=== PATIENT | female | born 1995 | race Caucasian/White ===

== ENCOUNTER 2017-01-29 10:42 | Emergency (ER) | payer BC, OTHER ==
[2017-01-29] MEDS ORDERED: Sodium Chloride 0.9% 10 ML Syringe FLUSH PRN (10:49)
[2017-01-29 10:59] VITALS: BP 121/68
[2017-01-29] MEDS ORDERED: Ketorolac 10 MG Tab PO ONE (11:31)
[2017-01-29] MEDS ORDERED: predniSONE 20 MG Tab PO ONE (11:31)
--- NOTE | 2017-01-29 11:58 | EDM.PDOC ---
ED HPI GENERAL MEDICAL PROBLEM - General Chief Complaint: Upper Extremity Injury/Pain Stated Complaint: left shoulder injury Time Seen by Provider: 01/29/17 11:12 Source of Information: Reports: Patient History Limitations: Reports: No Limitations - History of Present Illness INITIAL COMMENTS - FREE TEXT/NARRATIVE: Patient comes in with shoulder pain that started initially yesterday, while she was at work at [employer]. 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 Popping sensation noted at time of injury. Was able to keep working throughout the day. Reports that area was sore, and she continued to note intermittent popping feeling when using shoulder. No numbness/tingling/weakness reported. Overall, pain was tolerable and mild overall. Today she had sudden worsening pain when she tried to mushroom picker another object at work and [employer] had her come in for evaluation. Pain rated as 6/10 Presented originally to clinic, told to go to ER. No prior history of similar pain per patient. She has history of migraines. 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 FILLER: Reports: Other (see below) Other 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 FILLER: none lef shoulder Pain Score (Numeric/FACES): 6 - Related Data Allergies Allergy/AdvReac Type Severity Reaction Status Date / Time Sulfa (Sulfonamide Allergy Hives Verified 06/05/15 18:05 Antibiotics) Home Meds: Home Meds Ondansetron [Zofran ODT] 4 mg PO Q6H PRN #2 tab.dis 06/05/15 [Rx] Escitalopram [Lexapro] 10 mg PO DAILY 01/29/17 [History] Ketorolac [Toradol] 10 mg PO Q6H PRN #10 tablet 01/29/17 [Rx] Non-Formulary Medication [NF Drug] 1 ea .XX ASDIRECTED 01/29/17 [History] Propranolol [Inderal LA] 120 mg PO BID 01/29/17 [History] Past Medical History HEENT History: Reports: Impaired Vision Other Gastrointestinal History: pancreatitis -mar 2015 Musculoskeletal History: Reports: Fracture Neurological History: Reports: Head Trauma, Migraines Psychiatric History: Reports: Anxiety, Depression - Past Surgical History HEENT Surgical History: Reports: Adenoidectomy, Oral Surgery, Tonsillectomy Social & Family History - Tobacco Use Smoking Status *Q: Current Every Day Smoker Years of Tobacco use: 7 Packs/Tins Daily: 1 Used Tobacco, but Quit: No Tobacco Use Comment: Not interested in quitting at this time Second Hand Smoke Exposure: Yes - Caffeine Use Caffeine Use: Reports: None - Alcohol Use Days Per Week of Alcohol Use: 0 - Recreational Drug Use Recreational Drug Use: No - Living Situation & Occupation Living situation: Reports: Single, with Family Occupation: Employed Review of Systems - Review of Systems Review Of Systems: ROS reveals no pertinent complaints other than HPI. ED EXAM, GENERAL - Physical Exam Exam: See Below Exam Limited By: No Limitations General Appearance: Alert, WD/WN, No Apparent Distress, Other (Holding left arm against her chest using right hand, elbows bent at 90 degrees. ) Eye Exam: Bilateral Eye: EOMI, PERRL Head: Atraumatic, Normocephalic Neck: Supple, Full Range of Motion Respiratory/Chest: No Respiratory Distress Peripheral Pulses: 2+: Radial (L), Radial (R) Extremities: Normal Capillary Refill, Other (unable to assess ROM of left shoulder due to patient guarding joint. No noted swelling of shoulder, no sign dislocation/deformity. Vascularly intact. Tender with palpation superiorly over shoulder, along entire Trap muscle posteriorly, and in left pectoral muscle. Left arm itself did not show obvious tenderness. ) Neurological: Alert, Oriented, Normal Cognition, Normal Gait Psychiatric: Flat Affect (somewhat flat affect) Skin Exam: Warm, Dry, Intact, Normal Color Course - Vital Signs Last Recorded V/S: Last Vital Signs Temp 37.4 C 01/29/17 10:58 Pulse 61 01/29/17 10:58 Resp 20 01/29/17 10:58 BP 121/68 01/29/17 10:58 Pulse Ox 99 01/29/17 10:58 - Orders/Labs/Meds Orders: Active Orders 24 hr Category Date Time Status Shoulder Comp Lt [CR] Stat Exams 01/29/17 10:47 Taken Sodium Chloride 0.9% [Saline Flush] Med 01/29/17 10:49 Active 10 ml FLUSH ASDIRECTED PRN Saline Lock Insert [OM.PC] Routine Oth 01/29/17 10:49 Ordered Medication Orders Sodium Chloride (Saline Flush) 10 ml FLUSH ASDIRECTED PRN PRN Reason: Keep Vein Open Meds: Medications Generic Name Dose Route Start Last Admin Trade Name Freq PRN Reason Stop Dose Admin Sodium Chloride 10 ml 01/29/17 10:49 Saline Flush FLUSH ASDIRECTED PRN Keep Vein Open Discontinued Medications Generic Name Dose Route Start Last Admin Trade Name Kody PRN Reason Stop Dose Admin Ketorolac Tromethamine 10 mg 01/29/17 11:31 01/29/17 11:39 Toradol PO 01/29/17 11:32 10 mg ONETIME ONE Administration Prednisone 40 mg 01/29/17 11:31 01/29/17 11:41 Prednisone PO 01/29/17 11:32 40 mg ONETIME ONE Administration - Radiology Interpretation Free Text/Narrative:: No sign of dislocation/fracture noted when reviewing left shoulder films. Pending Radiology review. - Re-Assessments/Exams Free Text/Narrative Re-Assessment/Exam: 01/29/17 12:15 Patient refused IM medications. Was willing to take oral medication and received single dose of Prednisone and Toradol. Plan at this time is to provide patient sling for comfort and have her follow up tomorrow at Ortho walk-in clinic in [place] to have left shoulder re-evaluated as well as further work limitations decided. She did not show preference for choosing either [facility] or [facility] at this time. Rx for 10 Toradol tabs was given. No work today/tomorrow while waiting for Ortho evaluation. It was noted that patient has upcoming appointment with specialist in regards to her migraine headaches. It was suggested that she consider going on an elimination diet to try to identify food triggers, including discussion of most common dietary triggers for migraines. Patient refused, saying that she would not be willing to give up the listed foods. Departure - Departure Time of Disposition: 11:54 Disposition: Home, Self-Care 01 Condition: Good Clinical Impression: Injury of left shoulder Qualifiers: Encounter type: initial encounter Qualified Code(s): S49.92XA - Unspecified injury of left shoulder and upper arm, initial encounter - Discharge Information Prescriptions: Ketorolac [Toradol] 10 mg PO Q6H PRN #10 tablet PRN Reason: Pain Instructions: Ketorolac tablets, Prednisone tablets Referrals: Gregg Escobar [facility] [employer] [facility] [Primary Care Provider] - Forms: ED Department Discharge Additional Instructions: Wear sling for comfort. No other NSAIDS while using Toradol. Follow up tomorrow at Ortho walk-in clinic in [place], either [facility] or [facility]. You cannot schedule an appointment for this. They take walk-ins only, and it is better to show up in the morning as they may fill up. - My Orders Last 24 Hours: My Active Orders 01/29/17 10:47 Shoulder Comp Lt [CR] Stat 01/29/17 10:49 Sodium Chloride 0.9% [Saline Flush] 10 ml FLUSH ASDIRECTED PRN Saline Lock Insert [OM.PC] Routine - Assessment/Plan Last 24 Hours: My Active Orders 01/29/17 10:47 Shoulder Comp Lt [CR] Stat 01/29/17 10:49 Sodium Chloride 0.9% [Saline Flush] 10 ml FLUSH ASDIRECTED PRN Saline Lock Insert [OM.PC] Routine
== END 2017-01-29 12:09 | disposition home or self-care (01) ==
LOC: LL.ED 10:42
DX: S49.92XA Unspecified injury of left shoulder and upper arm, initial encounter (principal); F41.9 Anxiety disorder, unspecified; F32.9 Major depressive disorder, single episode, unspecified; F17.210 Nicotine dependence, cigarettes, uncomplicated; Z88.2 Allergy status to sulfonamides; Z79.899 Other long term (current) drug therapy; X50.9XXA Other and unspecified overexertion or strenuous movements or postures, initial encounter
CPT/HCPCS: 73030; 99283; A9270

== ENCOUNTER 2017-04-16 18:15 | Emergency (ER) | payer BC, OTHER ==
[2017-04-16 18:20] VITALS: BP 120/72
[2017-04-16] MEDS ORDERED: Ketorolac 30 MG/ML SDV IVPUSH ONE (18:48)
[2017-04-16] MEDS ORDERED: Metoclopramide 10 MG/2 ML SDV IVPUSH ONE (18:48)
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
[2017-04-16] MEDS ORDERED: Sodium Chloride 0.9% 10 ML Syringe FLUSH PRN (18:49)
== END 2017-04-16 19:30 | disposition home or self-care (01) ==
LOC: LL.ED 18:15
DX: G43.909 Migraine, unspecified, not intractable, without status migrainosus (principal); F41.8 Other specified anxiety disorders; J02.9 Acute pharyngitis, unspecified; F17.210 Nicotine dependence, cigarettes, uncomplicated; Z88.2 Allergy status to sulfonamides; Z79.899 Other long term (current) drug therapy; Z71.6 Tobacco abuse counseling
CPT/HCPCS: 87081; 87430; 87804; 96374; 96375; 99284; J1885; J2765; J7050

== ENCOUNTER 2018-12-26 14:41 | Emergency (ER) | payer BC ==
[2018-12-26 14:58] VITALS: BP 108/75
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
== END 2018-12-26 15:50 | disposition home or self-care (01) ==
LOC: LL.ED 14:41
DX: T63.461A Toxic effect of venom of wasps, accidental (unintentional), initial encounter (principal); F41.9 Anxiety disorder, unspecified; F32.9 Major depressive disorder, single episode, unspecified; Z88.2 Allergy status to sulfonamides; Z79.899 Other long term (current) drug therapy
CPT/HCPCS: 99281

== ENCOUNTER → 2019-03-04 | Outpatient (CLI) | payer BC ==
[2019-03-04 13:11] LABS: CHLORIDE,CL 103 mmol/L (98-107); SODIUM,NA 139 mmol/L (136-145)
== END ==
LOC: LL.CLIN 11:00
PROVIDERS: ATTEND Nurse Practitioner
DX: G47.00 Insomnia, unspecified (principal)
CPT/HCPCS: 36415; 80048; 82306; 82607; 82728; 83540; 83550; 83735; 84207; 84443; 84590

== ENCOUNTER 2019-06-05 09:42 | Emergency (ER) | payer OTHER ==
[2019-06-05] MEDS ORDERED: Sodium Chloride 0.9% 10 ML Syringe FLUSH PRN (09:55)
[2019-06-05] MEDS ORDERED: Ondansetron 4 MG/2 ML SDV ONE (10:00)
[2019-06-05] MEDS ORDERED: Morphine 2 MG/ML Syringe ONE (10:00)
[2019-06-05] MEDS ORDERED: Magnesium Sulfate/D5W 1 GM/100 ML Premix Bag ONE (10:00)
[2019-06-05] MEDS ORDERED: Diazepam 5 MG Tab ONE (10:00)
[2019-06-05] MEDS ORDERED: Ketorolac 30 MG/ML SDV ONE (10:00)
[2019-06-05] MEDS ORDERED: Ondansetron 4 MG/2 ML SDV IVPUSH ONE (10:10)
[2019-06-05] MEDS ORDERED: Morphine 2 MG/ML Syringe IVPUSH ONE ×3 (10:10→13:30)
[2019-06-05] MEDS ORDERED: Sodium Chloride 0.9% 1,000 ML IV ONE ×4 (10:10→12:45)
[2019-06-05 10:18] LABS: CHLORIDE,CL 105 mmol/L (98-107); SODIUM,NA 142 mmol/L (136-145)
[2019-06-05] MEDS ORDERED: Iopamidol 612 MG/ML 100 ML Bottle IVPUSH ONE (10:33)
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
[2019-06-05] MEDS ORDERED: Ketorolac 30 MG/ML SDV IVPUSH ONE (11:49)
[2019-06-05] MEDS ORDERED: Diazepam 5 MG Tab PO ONE (12:22)
[2019-06-05 15:21] LABS: BARBITURATE SCREEN,URINE NEGATIVE (NEGATIVE); BENZODIAZEPINES SCREEN,URINE NEGATIVE (NEGATIVE); EDDP,URINE SCREEN NEGATIVE (NEGATIVE); TCA SCREEN,URINE NEGATIVE (NEGATIVE); THC SCREEN,URINE 50 NG/ML NEGATIVE (NEGATIVE)
== END 2019-06-05 14:15 | disposition home or self-care (01) ==
LOC: LL.ED 09:42
DX: S06.0X1A Concussion with loss of consciousness of 30 minutes or less, initial encounter (principal); T07.XXXA Unspecified multiple injuries, initial encounter; F41.9 Anxiety disorder, unspecified; F32.9 Major depressive disorder, single episode, unspecified; F17.210 Nicotine dependence, cigarettes, uncomplicated; Z79.899 Other long term (current) drug therapy; Z88.2 Allergy status to sulfonamides; V48.5XXA Car driver injured in noncollision transport accident in traffic accident, initial encounter; Y92.410 Unspecified street and highway as the place of occurrence of the external cause
CPT/HCPCS: 36415; 70450; 71260; 72125; 74177; 80053; 80305-QW; 80307; 81001; 83605; 83735; 84703; 85025; 96361; 96365; 96375; 99285-25; A9270-GY; J1885; J2270; J2405; J3475; J7030; Q9967

== ENCOUNTER 2019-10-11 18:27 | Emergency (ER) | payer BC ==
[2019-10-11] MEDS ORDERED: Sodium Chloride 0.9% 10 ML Syringe FLUSH PRN (18:57)
[2019-10-11] MEDS ORDERED: Ondansetron 4 MG/2 ML SDV IVPUSH ONE (19:18)
[2019-10-11] MEDS ORDERED: Sodium Chloride 0.9% 1,000 ML IV ONE (19:18)
[2019-10-11 19:28] LABS: CHLORIDE,CL 107 mmol/L (98-107); SODIUM,NA 139 mmol/L (136-145)
[2019-10-11] MEDS ORDERED: Ketorolac 30 MG/ML SDV IVPUSH ONE (19:58)
[2019-10-11 20:24] VITALS: BP 128/80; PULSE 88
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
== END 2019-10-11 21:05 | disposition home or self-care (01) ==
LOC: LL.ED 18:27
DX: R11.2 Nausea with vomiting, unspecified (principal); F41.9 Anxiety disorder, unspecified; F32.9 Major depressive disorder, single episode, unspecified; F17.210 Nicotine dependence, cigarettes, uncomplicated; Z88.0 Allergy status to penicillin; Z79.899 Other long term (current) drug therapy; Z88.2 Allergy status to sulfonamides; Z20.828 Contact with and (suspected) exposure to other viral communicable diseases
CPT/HCPCS: 36415; 74022; 80053; 83605; 83735; 85025; 96361; 96374; 96375; 99284-25; J1885; J2405; J7030; U0002

== ENCOUNTER 2019-10-16 10:55 | Emergency (ER) | payer BC ==
[2019-10-16] MEDS ORDERED: Sodium Chloride 0.9% 10 ML Syringe FLUSH PRN (11:04)
[2019-10-16] MEDS ORDERED: Promethazine 25 MG/ML SDV IM ONE (11:04)
[2019-10-16] MEDS ORDERED: Ketorolac 30 MG/ML SDV IVPUSH ONE (11:04)
[2019-10-16] MEDS ORDERED: diphenhydrAMINE 50 MG/ML SDV IVPUSH ONE (11:05)
[2019-10-16 11:17] VITALS: BP 103/56; PULSE 78
[2019-10-16] MEDS ORDERED: diphenhydrAMINE 50 MG/ML SDV IM ONE (11:28)
[2019-10-16] MEDS ORDERED: Ketorolac 30 MG/ML SDV IM ONE (11:29)
[2019-10-16] MEDS ORDERED: Sodium Chloride 0.9% 1,000 ML IV ONE (11:30)
[2019-10-16 11:58] LABS: CHLORIDE,CL 107 mmol/L (98-107); SODIUM,NA 140 mmol/L (136-145)
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
== END 2019-10-16 13:09 | disposition home or self-care (01) ==
LOC: LL.ED 10:55
DX: G43.909 Migraine, unspecified, not intractable, without status migrainosus (principal); F41.9 Anxiety disorder, unspecified; F32.9 Major depressive disorder, single episode, unspecified; F17.210 Nicotine dependence, cigarettes, uncomplicated; Z88.0 Allergy status to penicillin; Z88.2 Allergy status to sulfonamides; Z79.899 Other long term (current) drug therapy
CPT/HCPCS: 36415; 70450; 80053; 85025; 96372; 99284; J1200; J1885; J2550

== ENCOUNTER 2019-12-22 21:59 | Emergency (ER) | payer BC ==
[2019-12-22 22:02] VITALS: BP 109/58; PULSE 65
[2019-12-22] MEDS ORDERED: diphenhydrAMINE 50 MG/ML SDV IM ONE (22:18)
[2019-12-22] MEDS ORDERED: Promethazine 25 MG/ML SDV IM ONE (22:18)
[2019-12-22] MEDS ORDERED: Ketorolac 30 MG/ML SDV IM ONE (22:19)
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
== END 2019-12-22 22:30 | disposition home or self-care (01) ==
LOC: LL.ED 21:59
DX: G43.909 Migraine, unspecified, not intractable, without status migrainosus (principal); F41.9 Anxiety disorder, unspecified; F32.9 Major depressive disorder, single episode, unspecified; F17.210 Nicotine dependence, cigarettes, uncomplicated; Z88.0 Allergy status to penicillin; Z88.2 Allergy status to sulfonamides; Z79.899 Other long term (current) drug therapy
CPT/HCPCS: 96372; 99283; J1200; J1885; J2550

== ENCOUNTER 2020-01-12 21:43 | Emergency (ER) | payer BC ==
[2020-01-12 21:59] VITALS: BP 118/63; PULSE 74
[2020-01-12 22:35] LABS: CHLORIDE,CL 102 mmol/L (98-107); SODIUM,NA 136 mmol/L (136-145)
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
== END 2020-01-12 23:00 | disposition home or self-care (01) ==
LOC: LL.ED 21:43
DX: R19.7 Diarrhea, unspecified (principal); F32.9 Major depressive disorder, single episode, unspecified; F17.210 Nicotine dependence, cigarettes, uncomplicated; F41.9 Anxiety disorder, unspecified; Z88.0 Allergy status to penicillin; Z88.2 Allergy status to sulfonamides; Z79.899 Other long term (current) drug therapy
CPT/HCPCS: 36415; 80048; 85025; 99283; 99284

== ENCOUNTER 2020-06-24 15:50 | Emergency (ER) | payer BC ==
[2020-06-24 15:58] VITALS: PULSE 84
[2020-06-24 16:28] VITALS: BP 115/73
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
== END 2020-06-24 16:35 | disposition home or self-care (01) ==
LOC: LL.ED 15:50
DX: S61.210A Laceration without foreign body of right index finger without damage to nail, initial encounter (principal); Z88.0 Allergy status to penicillin; Z88.2 Allergy status to sulfonamides; Z79.899 Other long term (current) drug therapy; W26.8XXA Contact with other sharp object(s), not elsewhere classified, initial encounter
CPT/HCPCS: 12001; 99282; 99282-25

== ENCOUNTER 2020-07-19 20:59 | Emergency (ER) | payer BC ==
[2020-07-19 21:07] VITALS: BP 119/81; PULSE 77
[2020-07-19] MEDS ORDERED: Ondansetron 4 MG/2 ML SDV IVPUSH ONE (21:15)
[2020-07-19] MEDS ORDERED: Pantoprazole 40 MG Vial IVPUSH ONE (21:15)
[2020-07-19] MEDS ORDERED: Lactated Ringers 1,000 ML IV ONE (21:15)
[2020-07-19] MEDS ORDERED: Famotidine 20 MG/2 ML SDV IVPUSH ONE (21:15)
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
[2020-07-19] MEDS: Sodium Chloride 0.9% 10 ML Syringe FLUSH PRN ×3 (21:36→22:23)
[2020-07-19 21:49] LABS: PTT,PARTIAL THROMBOPLSTIN TIME 24.2 SEC (24.5-32.8)
[2020-07-19 21:58] LABS: CHLORIDE,CL 102 mmol/L (98-107); SODIUM,NA 139 mmol/L (136-145)
[2020-07-19] MEDS ORDERED: Ketorolac 30 MG/ML SDV IVPUSH ONE (22:06)
[2020-07-19] MEDS ORDERED: Metoclopramide 10 MG/2 ML SDV IVPUSH ONE (22:07)
== END 2020-07-19 22:50 | disposition home or self-care (01) ==
LOC: LL.ED 20:59
DX: R10.84 Generalized abdominal pain (principal); G43.909 Migraine, unspecified, not intractable, without status migrainosus; F41.8 Other specified anxiety disorders; R63.0 Anorexia; E66.9 Obesity, unspecified; Z68.34 Body mass index [BMI] 34.0-34.9, adult; Z87.891 Personal history of nicotine dependence; Z88.0 Allergy status to penicillin; Z88.2 Allergy status to sulfonamides; Z79.899 Other long term (current) drug therapy; Z20.822 Contact with and (suspected) exposure to COVID-19
CPT/HCPCS: 36415; 74022; 80053; 82150; 83605; 83690; 83735; 84443; 84550; 84703; 85025; 85610; 85730; 87804; 96374; 96375; 99284; 99284-25; C9113; J1885; J2405; J2765; J3490; J7120; U0002

== ENCOUNTER 2021-02-27 15:33 | Emergency (ER) | payer BC ==
[2021-02-27] MEDS ORDERED: diphenhydrAMINE 50 MG/ML SDV IVPUSH ONE (15:51)
[2021-02-27] MEDS ORDERED: Ondansetron 4 MG/2 ML SDV IV ONE (15:51)
[2021-02-27] MEDS ORDERED: Lactated Ringers 1,000 ML IV ONE ×3 (15:51→19:13)
[2021-02-27] MEDS ORDERED: Ketorolac 30 MG/ML SDV IVPUSH ONE (15:51)
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
[2021-02-27] MEDS: Sodium Chloride 0.9% 10 ML Syringe FLUSH PRN ×4 (16:20→20:13)
[2021-02-27 16:30] LABS: ANION GAP 10.8 meq/L (7-15); CHLORIDE,CL 105 mmol/L (98-107); SODIUM,NA 140 mmol/L (136-145)
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
[2021-02-27 19:24] VITALS: BP 126/75
[2021-02-27] MEDS ORDERED: HYDROmorphone 1 MG/ML Syringe IVPUSH ONE (19:54)
[2021-02-27] MEDS ORDERED: Ondansetron 4 MG/2 ML SDV ONE (20:16)
[2021-02-27 20:29] VITALS: PULSE 88
== END 2021-02-27 20:50 | disposition home or self-care (01) ==
LOC: LL.ED 15:33
DX: R10.9 Unspecified abdominal pain (principal); E66.9 Obesity, unspecified; Z88.0 Allergy status to penicillin; Z88.2 Allergy status to sulfonamides
CPT/HCPCS: 36415; 80053; 81001; 81025; 83605; 85025; 86140; 87040; 96374; 96375; 99283; 99284; J1170; J1200; J1885; J2405; J7120

== ENCOUNTER 2021-10-30 07:50 | Emergency (ER) | payer SELFPAY ==
[2021-10-30] MEDS ORDERED: Ondansetron 4 MG Tab.DIS PO ONE (08:37)
[2021-10-30] MEDS ORDERED: Lidocaine 1% 5 ML VIAL INJECT ONE (08:38)
[2021-10-30] MEDS ORDERED: cefTRIAXone 1 GM Vial IM ONE (08:38)
[2021-10-30] MEDS ORDERED: Ketorolac 30 MG/ML SDV IM ONE (08:39)
[2021-10-30] MEDS ORDERED: Pseudoephedrine 30 MG Tab PO ONE (08:39)
[2021-10-30] MEDS ORDERED: traMADol 50 MG Tab PO ONE (08:41)
[2021-10-30 09:51] VITALS: BP 120/36; PULSE 123
== END 2021-10-30 09:40 | disposition home or self-care (01) ==
LOC: LL.ED 07:50
DX: H66.92 Otitis media, unspecified, left ear (principal); E66.9 Obesity, unspecified; Z68.30 Body mass index [BMI] 30.0-30.9, adult; Z88.0 Allergy status to penicillin; Z88.2 Allergy status to sulfonamides; Z79.899 Other long term (current) drug therapy
CPT/HCPCS: 96372; 99282; A9270-GY; J0696; J1885

== ENCOUNTER 2022-04-30 13:31 | Emergency (ER) | payer BC, MEDICAID ==
[2022-04-30 13:36] VITALS: BP 144/79; PULSE 100
[2022-04-30 14:46] LABS: ANION GAP 10.3 meq/L (7-15); CHLORIDE,CL 103 mmol/L (98-107); ESTIMATED GFR 121 mL/min (>=60); SODIUM,NA 138 mmol/L (136-145)
[2022-04-30] MEDS ORDERED: Prochlorperazine 10 MG/2 ML SDV IV ONE (15:32)
[2022-04-30] MEDS ORDERED: Ketorolac 15 MG/ML SDV IVPUSH ONE (15:32)
[2022-04-30] MEDS ORDERED: Sodium Chloride 0.9% 500 ML IV SCH (15:45)
== END 2022-04-30 16:25 | disposition home or self-care (01) ==
LOC: LL.ED 13:31
DX: G43.909 Migraine, unspecified, not intractable, without status migrainosus (principal); E66.9 Obesity, unspecified; Z68.32 Body mass index [BMI] 32.0-32.9, adult; Z88.0 Allergy status to penicillin; Z88.2 Allergy status to sulfonamides; Z79.899 Other long term (current) drug therapy
CPT/HCPCS: 36415; 80053; 85025; 96361; 96374; 96375; 99283-25; J0780; J1885; J7040

== ENCOUNTER 2023-02-21 07:29 | Emergency (ER) | payer BC ==
[2023-02-21 07:35] VITALS: BP 139/93; PULSE 90
[2023-02-21] MEDS ORDERED: Sodium Chloride 0.9% 10 ML Syringe FLUSH PRN (07:45)
[2023-02-21 08:00] LABS: BASOPHILS ABSOLUTE AUTO 0.07 K/uL (0.00-0.20); EOSINOPHILS ABSOLUTE AUTO 0.07 K/uL (0.00-0.50); HEMATOCRIT 41.6 % (34.0-46.0); HEMOGLOBIN 13.9 g/dL (11.7-15.5); LYMPHOCYTES ABSOLUTE AUTO 2.29 K/uL (0.50-3.50); LYMPHOCYTES PERCENT AUTO 33.4 % (10.0-50.0); MEAN CORPUSCULAR HEMOGLOBIN 29.6 pg (28.2-33.3); MEAN CORPUSCULAR HGB CONC 33.4 g/dL (31.7-36.0); MEAN CORPUSCULAR VOLUME 88.7 fL (84.0-98.0); MONOCYTES ABSOLUTE AUTO 0.48 K/uL (0.00-1.00); NEUTROPHILS ABSOLUTE AUTO 3.95 K/uL (1.40-7.00); NEUTROPHILS PERCENT AUTO 57.6 % (45.0-80.0); PLATELET COUNT,PLT 347 K/uL (150-350); RED BLOOD CELL COUNT 4.69 M/uL (3.77-5.09); WHITE BLOOD CELL COUNT,WBC 6.9 K/uL (4.0-10.2)
[2023-02-21] MEDS ORDERED: Ondansetron 4 MG/2 ML SDV ONE (08:05)
[2023-02-21] MEDS ORDERED: Ondansetron 4 MG/2 ML SDV IVPUSH ONE (08:06)
[2023-02-21] MEDS ORDERED: Sodium Chloride 0.9% 1,000 ML IV ONE (08:11)
[2023-02-21 08:21] LABS: ALBUMIN 3.6 g/dL (3.4-5.0); ANION GAP 10.9 meq/L (7-15); BILIRUBIN TOTAL 0.3 mg/dL (0.2-1.0); CALCIUM 8.9 mg/dL (8.5-10.1); CARBON DIOXIDE,CO2 24.1 mmol/L (21.0-32.0); CREATININE 0.67 mg/dL (0.51-1.17); EST CRCL DRUG DOSING (CG) 101.52 mL/min; POTASSIUM,K 4.4 mmol/L (3.5-5.1); PROTEIN TOTAL,TP 6.9 g/dL (6.4-8.2)
[2023-02-21 08:26] LABS: INR 0.9 (0.9-1.1); PROTHROMBIN TIME 9.3 SEC (9.0-11.1)
[2023-02-21 08:29] LABS: CORONAVIRUS COVID-19 NAA NEGATIVE (NEGATIVE); INFLUENZA A NAA NEGATIVE (NEGATIVE); INFLUENZA B NAA NEGATIVE (NEGATIVE); RESPIRATORY SYNCYTIAL VIR NAA NEGATIVE (NEGATIVE)
[2023-02-21] MEDS ORDERED: Aluminum Hydroxide/Magnesium Hydroxide/Simethicone Susp 30 ML Cup PO ONE (08:58)
[2023-02-21] MEDS ORDERED: Lidocaine 2% Viscous Solution 15 ML UD PO ONE (08:58)
[2023-02-21] MEDS ORDERED: Sucralfate 1 GM Tab PO ONE (10:24)
== END 2023-02-21 11:40 | disposition home or self-care (01) ==
LOC: LL.ED 07:29
DX: K29.00 Acute gastritis without bleeding (principal); E66.9 Obesity, unspecified; Z68.37 Body mass index [BMI] 37.0-37.9, adult; Z88.0 Allergy status to penicillin; Z88.2 Allergy status to sulfonamides; Z88.8 Allergy status to other drugs, medicaments and biological substances; Z20.822 Contact with and (suspected) exposure to COVID-19
CPT/HCPCS: 0241U; 36415; 80053; 83690; 85025; 85610; 96361; 96374; 99284-25; A9270-GY; J2405; J7030

== ENCOUNTER 2023-03-31 06:24 | Emergency (ER) | payer BC ==
[2023-03-31] MEDS ORDERED: Pantoprazole 40 MG in Sodium Chloride 0.9% 100 ML IV ONE (06:43)
[2023-03-31] MEDS ORDERED: Ondansetron 4 MG/2 ML SDV IVPUSH ONE (06:44)
[2023-03-31] MEDS ORDERED: Pantoprazole 40 MG Vial IVPUSH ONE (07:03)
[2023-03-31 07:08] LABS: BASOPHILS ABSOLUTE AUTO 0.05 K/uL (0.00-0.20); BASOPHILS PERCENT AUTO 0.6 % (0.0-2.0); EOSINOPHILS ABSOLUTE AUTO 0.13 K/uL (0.00-0.50); EOSINOPHILS PERCENT AUTO 1.5 % (0.0-5.0); HEMATOCRIT 41.1 % (34.0-46.0); HEMOGLOBIN 13.8 g/dL (11.7-15.5); LYMPHOCYTES ABSOLUTE AUTO 3.42 K/uL (0.50-3.50); LYMPHOCYTES PERCENT AUTO 39.4 % (10.0-50.0); MEAN CORPUSCULAR HEMOGLOBIN 29.7 pg (28.2-33.3); MEAN CORPUSCULAR HGB CONC 33.6 g/dL (31.7-36.0); MEAN CORPUSCULAR VOLUME 88.4 fL (84.0-98.0); MONOCYTES ABSOLUTE AUTO 0.66 K/uL (0.00-1.00); MONOCYTES PERCENT AUTO 7.6 % (2.0-14.0); NEUTROPHILS ABSOLUTE AUTO 4.42 K/uL (1.40-7.00); NEUTROPHILS PERCENT AUTO 50.9 % (45.0-80.0); PLATELET COUNT,PLT 321 K/uL (150-350); RED BLOOD CELL COUNT 4.65 M/uL (3.77-5.09); RED CELL DISTRIBUTION WIDTH 12.7 % (11.2-14.1); WHITE BLOOD CELL COUNT,WBC 8.7 K/uL (4.0-10.2)
[2023-03-31] MEDS: Sodium Chloride 0.9% 10 ML Syringe FLUSH PRN ×2 (07:16→09:14)
[2023-03-31] MEDS ORDERED: Sodium Chloride 0.9% 1,000 ML IV ONE (07:34)
[2023-03-31 07:35] LABS: ALANINE AMINOTRANSFERASE,ALT 34 U/L (12-78); ALBUMIN 3.5 g/dL (3.4-5.0); ALKALINE PHOSPHATASE 50 IU/L (46-116); ANION GAP 11.6 meq/L (7-15); ASPARTATE AMNIOTRANSFERASE,AST 14 U/L (15-37); BILIRUBIN TOTAL 0.5 mg/dL (0.2-1.0); BLOOD UREA NITROGEN,BUN 11 mg/dL (7-18); CALCIUM 8.9 mg/dL (8.5-10.1); CARBON DIOXIDE,CO2 25.4 mmol/L (21.0-32.0); CHLORIDE,CL 104 mmol/L (98-107); CREATININE 0.77 mg/dL (0.51-1.17); ESTIMATED GFR 109 mL/min (>=60); GLUCOSE RANDOM 99 mg/dL (70-99); POTASSIUM,K 3.9 mmol/L (3.5-5.1); PROTEIN TOTAL,TP 6.7 g/dL (6.4-8.2); SODIUM,NA 141 mmol/L (136-145)
[2023-03-31] MEDS ORDERED: Promethazine 25 MG/ML SDV IM ONE (07:48)
[2023-03-31] MEDS ORDERED: diphenhydrAMINE 50 MG/ML SDV IVPUSH ONE (08:00)
[2023-03-31] MEDS ORDERED: Ketorolac 30 MG/ML SDV IVPUSH ONE (08:01)
[2023-03-31 09:20] VITALS: BP 121/85; PULSE 70
[2023-03-31 09:22] LABS: APPEARANCE,URINE CLEAR; BILIRUBIN,URINE NEGATIVE (NEGATIVE); COLOR,URINE YELLOW; GLUCOSE,URINE NEGATIVE (NEGATIVE); KETONES,URINE NEGATIVE (NEGATIVE); LEUKOCYTE ESTERASE,URINE NEGATIVE (NEGATIVE); NITRITE,URINE NEGATIVE (NEGATIVE); OCCULT BLOOD,URINE NEGATIVE (NEGATIVE); PROTEIN,URINE NEGATIVE (NEGATIVE); UROBILINOGEN,URINE 0.2 E.U./dL (0.2-1.0)
[2023-03-31 09:46] LABS: BACTERIA,URINE FEW /HPF (NONE TO FEW); RBC,URINE 0-5 /HPF; WBC,URINE 0-5 /HPF
== END 2023-03-31 09:25 | disposition home or self-care (01) ==
LOC: LL.ED 06:24
DX: R10.9 Unspecified abdominal pain (principal); G89.29 Other chronic pain; K92.0 Hematemesis; G43.909 Migraine, unspecified, not intractable, without status migrainosus; K92.1 Melena; F17.210 Nicotine dependence, cigarettes, uncomplicated; E66.9 Obesity, unspecified; Z88.0 Allergy status to penicillin; Z88.2 Allergy status to sulfonamides; Z88.8 Allergy status to other drugs, medicaments and biological substances; Z79.899 Other long term (current) drug therapy
CPT/HCPCS: 36415; 80053; 81001; 81025; 83605; 85025; 96361; 96372; 96374; 96375; 99284; 99284-25; C9113; J1200; J1885; J2405; J2550; J3490; J7030

== ENCOUNTER 2023-04-26 07:10 | Emergency (ER) | payer BC ==
[2023-04-26] MEDS ORDERED: Sodium Chloride 0.9% 10 ML Syringe FLUSH PRN (07:34)
[2023-04-26] MEDS ORDERED: Sodium Chloride 0.9% 1,000 ML IV ONE ×2 (07:35→08:42)
[2023-04-26 08:04] LABS: BASOPHILS ABSOLUTE AUTO 0.04 K/uL (0.00-0.20); BASOPHILS PERCENT AUTO 0.5 % (0.0-2.0); EOSINOPHILS ABSOLUTE AUTO 0.06 K/uL (0.00-0.50); EOSINOPHILS PERCENT AUTO 0.8 % (0.0-5.0); HEMATOCRIT 40.4 % (34.0-46.0); HEMOGLOBIN 13.4 g/dL (11.7-15.5); LYMPHOCYTES ABSOLUTE AUTO 2.88 K/uL (0.50-3.50); LYMPHOCYTES PERCENT AUTO 39.2 % (10.0-50.0); MEAN CORPUSCULAR HEMOGLOBIN 29.3 pg (28.2-33.3); MEAN CORPUSCULAR HGB CONC 33.2 g/dL (31.7-36.0); MEAN CORPUSCULAR VOLUME 88.2 fL (84.0-98.0); MONOCYTES ABSOLUTE AUTO 0.51 K/uL (0.00-1.00); MONOCYTES PERCENT AUTO 6.9 % (2.0-14.0); NEUTROPHILS ABSOLUTE AUTO 3.85 K/uL (1.40-7.00); NEUTROPHILS PERCENT AUTO 52.6 % (45.0-80.0); PLATELET COUNT,PLT 256 K/uL (150-350); RED BLOOD CELL COUNT 4.58 M/uL (3.77-5.09); RED CELL DISTRIBUTION WIDTH 12.8 % (11.2-14.1); WHITE BLOOD CELL COUNT,WBC 7.3 K/uL (4.0-10.2)
[2023-04-26 08:11] LABS: ALANINE AMINOTRANSFERASE,ALT 47 U/L (12-78); ALBUMIN 3.3 g/dL (3.4-5.0); ALKALINE PHOSPHATASE 67 IU/L (46-116); ANION GAP 10.7 meq/L (7-15); ASPARTATE AMNIOTRANSFERASE,AST 22 U/L (15-37); BILIRUBIN TOTAL 0.4 mg/dL (0.2-1.0); BLOOD UREA NITROGEN,BUN 11 mg/dL (7-18); CALCIUM 8.9 mg/dL (8.5-10.1); CARBON DIOXIDE,CO2 24.3 mmol/L (21.0-32.0); CHLORIDE,CL 104 mmol/L (98-107); CREATININE 0.77 mg/dL (0.51-1.17); GLUCOSE RANDOM 97 mg/dL (70-99); MAGNESIUM 1.7 mg/dL (1.8-2.4); SODIUM,NA 139 mmol/L (136-145)
[2023-04-26 08:13] LABS: ESTIMATED GFR 109 mL/min (>=60)
[2023-04-26] MEDS ORDERED: Ondansetron 4 MG/2 ML SDV IVPUSH ONE (08:24)
[2023-04-26] MEDS ORDERED: Ketorolac 15 MG/ML SDV IVPUSH ONE (08:27)
[2023-04-26] MEDS ORDERED: Take Home: Albuterol 6.7 GM Inhaler, 1 Inhaler Pack INH ONE (08:52)
[2023-04-26] MEDS ORDERED: Take Home: Ondansetron 4 MG Tab.DIS, 5 Tab Pack PO ONE (08:52)
[2023-04-26 09:23] LABS: INFLUENZA A NAA NEGATIVE (NEGATIVE); INFLUENZA B NAA NEGATIVE (NEGATIVE); RESPIRATORY SYNCYTIAL VIR NAA NEGATIVE (NEGATIVE)
[2023-04-26 09:25] LABS: CORONAVIRUS COVID-19 NAA POSITIVE (NEGATIVE)
[2023-04-26 09:59] VITALS: BP 126/73
[2023-04-26 10:00] VITALS: PULSE 77
[2023-04-26 10:02] LABS: APPEARANCE,URINE CLEAR; BILIRUBIN,URINE NEGATIVE (NEGATIVE); COLOR,URINE YELLOW; GLUCOSE,URINE NEGATIVE (NEGATIVE); KETONES,URINE NEGATIVE (NEGATIVE); LEUKOCYTE ESTERASE,URINE NEGATIVE (NEGATIVE); NITRITE,URINE NEGATIVE (NEGATIVE); OCCULT BLOOD,URINE NEGATIVE (NEGATIVE); PH,URINE 6.5 (5.0-9.0); PROTEIN,URINE NEGATIVE (NEGATIVE); UROBILINOGEN,URINE 0.2 E.U./dL (0.2-1.0)
[2023-04-26] MEDS ORDERED: Prochlorperazine 10 MG/2 ML SDV IVPUSH ONE (10:13)
[2023-04-26] MEDS ORDERED: Acetaminophen 500 MG Tab PO ONE (10:14)
[2023-04-26] MEDS ORDERED: diphenhydrAMINE 25 MG Cap PO ONE (10:37)
== END 2023-04-26 11:00 | disposition home or self-care (01) ==
LOC: LL.ED 07:10
DX: U07.1 COVID-19 (principal); E86.0 Dehydration; G43.909 Migraine, unspecified, not intractable, without status migrainosus; E66.9 Obesity, unspecified; F17.210 Nicotine dependence, cigarettes, uncomplicated; Z88.0 Allergy status to penicillin; Z88.2 Allergy status to sulfonamides; Z88.8 Allergy status to other drugs, medicaments and biological substances; Z79.899 Other long term (current) drug therapy
CPT/HCPCS: 0241U; 36415; 80053; 81003; 81025; 83605; 83735; 85025; 96361; 96365; 96375; 99284-25; A9270-GY; J0780; J1885; J2405; J3475; J7030; Q0162